=== PATIENT | female | born 1940 | race Caucasian/White ===

== ENCOUNTER 2018-04-11 08:03 | Outpatient (CLI) | payer OTHER ==
[~2018-04-11 08:03] MED LIST: AMIODARONE HCL100 MG; ELIQUIS5 MG; HYOSCYAMINE0.125 M1 SL; INTESTINEX1 CA1 PO; LOSARTAN POTAS100 MG; PEPCID20 MG; PROTONIX40 MG PO; SYNTHROID88 MCG
== END 2018-04-11 08:14 | disposition home or self-care (01) ==
LOC: NUCLEAR 08:03
DX: K31.84 Gastroparesis (principal)
CPT/HCPCS: 78264; A9541

== ENCOUNTER 2021-03-23 22:37 | Emergency (ER) | payer OTHER ==
[~2021-03-23] VITALS: Ht 149.9 cm; Wt 72.6 kg
[2021-03-23] MEDS ORDERED: RITMOL (22:48)
[2021-03-23] MEDS ORDERED: NORVASC2.5 M1 (22:48)
[2021-03-23] MEDS ORDERED: LOSARTAN POTASS50 MG (22:48)
[2021-03-23] MEDS ORDERED: FAMOTIDINE40 MG (22:49)
[2021-03-24] MEDS ORDERED: LEVSIN/SL0.125 MG SL (06:13)
[2021-03-24] MEDS ORDERED: PYRIDIUM DS200 MG PO (06:13)
[2021-03-24] MEDS ORDERED: CIPRO500 MG PO (06:13)
== END 2021-03-24 06:18 | disposition home or self-care (01) ==
LOC: ER 22:37
DX: N39.0 Urinary tract infection, site not specified (principal); R10.11 Right upper quadrant pain; R10.84 Generalized abdominal pain; Z03.818 Encounter for observation for suspected exposure to other biological agents ruled out